=== PATIENT | male | born 1960 | race Hispanic/Latino ===

== ENCOUNTER 2021-10-22 10:37 | Day surgery (SDC) | payer OTHER ==
[2021-10-17 16:02] LABS: Absolute Lymphocytes (CBC) 1.2 K/uL (0.7-4.9); Lymphocytes % 20.5 % (15.3-44.8); MCV 98.4 fL (80-100); MPV 5.8 fL (7.6-11.3); Protime INR 1.04; RBC Red Blood Cell Count 3.97 M/uL (4.33-5.43)
[2021-10-17 16:10] LABS: SARS-CoV-2 Antigen Rapid Res Negative (Negative)
[2021-10-17 16:24] LABS: Potassium 4.1 mmol/L (3.5-5.1)
--- NOTE | 2021-10-19 15:23 | EKG ---
Test Date: 2021-10-17 Test Time: 14:44:42 Domestic Maid: VALDEZ MEASUREMENT RESULTS: Intervals: Rate: 74 OR: 130 QRSD: 66 QT: 358 QTc: 397 [place]: P: 72 OR: 130 QRS: 76 T: 84 INTERPRETIVE STATEMENTS: Normal sinus rhythm ST elevation, consider early repolarization, pericarditis, or injury Nonspecific ST abnormality Abnormal ECG Compared to ECG 08/08/2008 10:14:14 ST (T wave) deviation now present Electronically Signed On 10-19-21 15:20:18 CDT by Edgar Hernandez
[2021-10-22] MEDS ORDERED: CEFAZOLIN SODIUM 1 GM/VIAL ONE (10:55)
[2021-10-22] MEDS ORDERED: Ringers Lactate 1,000 ML IV ONE ×2 (10:55→15:58)
[2021-10-22] MEDS ORDERED: dexAMETHasone 10 MG/ML VIAL ONE (14:23)
[2021-10-22] MEDS ORDERED: propofoL 200 MG/20 ML VIAL IV ONE ×4 (14:23→16:54)
[2021-10-22] MEDS ORDERED: LIDOCAINE 2% MPF 5 ML VIAL ONE (14:24)
[2021-10-22] MEDS ORDERED: ONDANSETRON 4 MG/2 ML VIAL ONE (14:24)
[2021-10-22] MEDS ORDERED: KETOROLAC 30 MG/ML INJ ONE (14:24)
[2021-10-22] MEDS ORDERED: LIDOCAINE 1% MPF 30 ML VIAL ONE (14:33)
[2021-10-22] MEDS ORDERED: BACITRACIN OINTMENT 14 GM TUBE TOP ONE (14:33)
[2021-10-22] MEDS ORDERED: BUPIVACAINE 0.25% PF 30 ML VIAL ONE (14:33)
[2021-10-22] MEDS ORDERED: FENTANYL CITR 100 MCG/2 ML ONE (14:35)
[2021-10-22] MEDS ORDERED: NS 0.9% VIAL 20 ML ONE (15:22)
[2021-10-22] MEDS ORDERED: NS 0.9% VIAL 10 ML ONE (15:41)
[2021-10-22] MEDS ORDERED: EPHEDRINE SULF 50 MG/ML VIAL ONE (15:52)
[2021-10-22] MEDS ORDERED: Phenylephrine HCl 10 MG/ML 1 ML VIAL ONE (15:56)
[2021-10-22] MEDS ORDERED: Mastisol Adhesive Liq ONE (17:02)
[2021-10-22 17:50] VITALS: O2SAT 99
[2021-10-22 18:25] VITALS: BP 108/62; TEMP 97.4
[2021-10-22] MEDS ORDERED: CODEINE 30MG/APAP 300MG TAB PO PRN (18:25)
[2021-10-22] MEDS ORDERED: PHENAZOPYRIDINE 100MG TAB PO ONE (18:25)
--- NOTE | 2021-10-22 21:14 | OP ---
Surgeon: ALYSSA ESPINAL Preoperative Diagnoses: 1.Phimosis. 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 3.Left-sided hydronephrosis. Postoperative Diagnoses: 1.Phimosis. 2.Balanitis xerotica obliterans. 3.Meatal stenosis. 4.Pendulous urethral stricture disease extending into the perineal urethra but sparing the bulbar ur ethra. 5.Cystitis. 6.Left pelviectasis with delayed drainage. Principal Procedures: 1.Penile block. 2.Dorsal slit. 3.Meatoplasty. 4.Meatal dilation using sounds. 5.Urethroscopy and wire placement. 6.Sequential dilation of the urethra over a wire. 7.Flexible cystoscopy. 8.Left retrograde pyelography. 9.Left ureteral stent placement. 10.Complex left urethral catheter placement. Indication For Procedure: Mr. Gregg is a 61-year-old developmentally delayed individual with some bot hersome lower urinary symptoms and recurrent UTIs with left-sided hydronephrosis observed on ultrasou nd. On examination, his meatus was not visible due to dense phimosis. Procedure In Detail: The patient and his caregivers were consented in the preoperative holding area before being transferred to the operative suite where general anesthesia was induced. He was given A ncef for IV antimicrobial prophylaxis and pneumo boots were provided for DVT prophylaxis. He was ini tially placed in the supine position, padded and secured to the table appropriately, and I shaved his genitalia around the base of the penis before prepping it with Betadine and draping it in standard f ashion. A penile block was then delivered using a 1:1 mixture of 0.25% Marcaine with 1% lidocaine, a nd about 35 cc was instilled in the infrapubic region and in the region of the neurovascular bundles bilaterally. The case was then begun by using Adson forceps to try to hold apart the phimotic foresk in and visualize any sort of opening. There was only a pinpoint opening dorsally, as well as an fredrick tional pinpoint opening ventrally in the midline. I started with the dorsal opening by placing a cur bertha snap into the opening and gently dilating it. This evidenced itself to be a small hole likely a drainage site for sebum secretions from the foreskin as it had fused with the glans penis dorsally. Because the fusion with the glans was circumferential and abutted the meatal opening ventrally within a couple of mm, after making an assessment of the degree of adhesions, also given his cognitive stat us, I decided that trying to take down all of those adhesions would leave an extremely raw surface of the glans, which would be very difficult for him to heal and would likely simply re-adhese over time . He would also be at a high risk of infection. So instead, I dilated the dorsal opening sufficient ly to place a straight snap into the area and clamped the intervening tissue before dividing it sharp ly using electrocautery to perform a dorsal slit. Once the delacruz of the glans was approximated and the remainder of the glans in the region of the dorsal slit was visualizable despite the remainder of the glans from 2 o'clock to 10 o'clock being fused with the foreskin, at least the dorsal portion wa s now open. I then sutured the skin edges of the newly created dorsal slit using 3-0 chromic suture dipped in bacitracin in a running fashion along each side of the V that had been created. I then tur eve my attention back ventrally where the hole that was seen there was gently dilated using a curved snap before I utilized a 10-[place] catheter, after attempting a 14-[place] catheter without success, t o pass with some difficulty via the urethra and into the bladder where a very odiferous urine was enc ountered. I decompressed his bladder of that likely infected urine, and left the catheter in place. I then placed a straight snap along the frenular surface or frenular side of the meatal opening in o rder to perform a meatotomy, which I then dilated after removing the catheter with urethral sounds wi th great difficulty dilating the meatus and fossa navicularis to 26-[place] Citizen. I then reapproximated th e skin edges completing a meatoplasty using 5-0 Monocryl suture along each quadrant of the opening cr eated. I then attempted rigid cystoscopy using a 19.5-[place] scope, which would not pass beyond the meatus and fossa navicularis due to extensive urethral stricture disease. As a result, I passed a wi re under direct vision from the scope into his bladder and use of fluoroscopic imagery to confirm the wire was appropriately in place within the bladder. I then utilized sequential dilators to attempt to dilate over the wire. I was able to pass a 16-[place] Citizen dilator successfully all the way into his bl adder as evidenced fluoroscopically with the injection of contrast, essentially performing a cystogra m confirming the dilator and wire were appropriately within the bladder. Once confirmed, I then swit ched the Sensor wire with a super stiff wire via the 16-[place] Citizen dilator and coiled it within his bladd er as evidenced fluoroscopically. I then attempted to pass an 18-[place] dilator, but was only able t o navigate it beyond the distal 1/2 of the pendulous urethra due to the extensive nature of the stric ture disease along the entirety of the pendulous urethra extending into the perineal urethra. As a r esult, I removed the 18-[place] dilator and attempted to pass a 17-[place] rigid scope over the wire in to his bladder, but this would not pass due to the extensive nature of the urethral stricture disease and the retraction of his phallus that made grasping the phallus to aid navigation of the cystoscope very difficult. As a result, I then switched and employed a 16-[place] flexible cystoscope, which I was able to navigate over the super stiff wire and successfully enter his bladder. Upon entry into t he bladder, I aspirated several 100 cc of cloudy urine from within, and of note, a culture had been t jefry earlier when the 10-[place] catheter was placed into his bladder. I then refilled his bladder wi th sterile water and identified the ureteral orifices, which were orthotopic bilaterally. The remain vasiliy of his bladder was surveyed in its entirety, and there were no mucosal lesions, foreign bodies, o r stones of any suspicious nature. There was evidence of cystitis with erythema of the mucosa throug hout, consistent with a cloudiness of the urine and the odor found. I thus placed the cystoscope in line with the left ureteral orifice and was able to use a 5-[place] ureteral access catheter with the tip of a Sensor wire to gain access into the left ureteral orifice and navigate the 5-[place] ureteral access catheter into the distal ureter where a retrograde pyelogram was then performed. Left retrograde pyelography: Using fluoroscopic imagery and a 70:30 mixture of Omnipaque and saline, contrast was injected via the 5-[place] Citizen ureteral access catheter and did propagate up a nondilated and nonobstructed appearing dist al into the mid and proximal ureter before easily entering the renal pelvis and calices. Additional contrast was injected, and the calices were sharp without any blunting. The pelvis did appear to be mildly dilated, but it was not clear whether this was simply an anatomic variation. There did not ap pear to be significant hydronephrosis. So, after distending his pelvis with contrast, I then observe d the contrast easily, navigate alongside the 5-[place] ureteral access catheter and into his bladder indicative of absence of ureteral obstruction. There was no evidence of UPJ obstruction either. I lizzie mares placed the Sensor wire via the 5-[place] ureteral access catheter and coiled it within the upper p ole of his kidney and removed the 5-[place] ureteral access catheter because there was no significant efflux of contrast from within the renal pelvis and calices despite a period of observation. And hannah montero once the wire was in place and a 5-[place] ureteral access catheter was removed, there was delayed e fflux of contrast from the pelvis and collecting system; so as a result, I placed a 4.8-[place] Citizen x 26 c m double-J ureteral stent into his left kidney with a coil observed fluoroscopically and 1 cystoscopi keila formed in his bladder. This stent was left on its tether, which was left hanging outside the u rethra. I then placed a Sensor wire back into his bladder via the flexible cystoscope, and over the wire, I was able to navigate a 16-[place] tipped Parkinson catheter with moderate difficulty. Josef roximately 20 cc of sterile water was placed in the balloon, and the bladder was decompressed of some mildly cloudy urine. I then irrigated his bladder to clear it of the cloudiness and potentially inf ected urine before using Mastisol and Steri-Strips to secure the stent tether string to the catheter. The catheter was then connected to a leg bag, and the patient was taken out of the lithotomy positi on. A StatLock was applied, and the patient was awakened from general anesthesia before being transf erred through a stretcher. He was then transferred to the recovery room in good condition. Complications: None. Discharge Disposition: I would like to leave that urethral catheter in place for at least the next 2 weeks to allow the urethra to dilate. Since he has significant urethral stricture disease, he may b enefit from additional operative management and formal DVIU, which may be able to be performed follow ing passive dilation of the urethra with the 16-[place] catheter in place. We also will reassess his renal function with the stent in place and his bladder maximally decompressed with a catheter after a few weeks of drainage. If there is significant improvement in his renal function, then the presumpt lizabeth delayed drainage related obstruction could very well be the cause. If there is not significant i mprovement in his renal function, then obstruction is unlikely the cause, and he is scheduled to see a market developer in followup. I will also discharge him with a prescription for antimicrobial therapy to be taken twice a day for the next 10 days with additional prophylactic dosing to be taken over the course of the next 2-4 weeks while the stent remains in place and the above assessment is being perfo rmed. ANTHONY/NOELLE Voice ID: [id number] Report ID: [id number]
--- NOTE | 2021-10-23 08:40 | RAD REPORT ---
EXAM DESCRIPTION: RAD - Urethrocystogrphy Retrograde - 10/23/2021 8:22 am CLINICAL HISTORY: RETROGRADE PYELOGRAM COMPARISON: No comparisons FINDINGS: Total fluoro time: 0.5 minutes
== END 2021-10-22 18:59 | disposition home or self-care (01) ==
LOC: OR 10:37
PROVIDERS: ATTEND Urology
PROC: 0T9780Z Drainage of Left Ureter with Drainage Device, Via Natural or Artificial Opening Endoscopic (ICD-10-PCS; 2021-10-22)
PROC: 0TND8ZZ Release Urethra, Via Natural or Artificial Opening Endoscopic (ICD-10-PCS; 2021-10-22)
PROC: 0T7D8ZZ Dilation of Urethra, Via Natural or Artificial Opening Endoscopic (ICD-10-PCS; 2021-10-22)
PROC: 0VNTXZZ Release Prepuce, External Approach (ICD-10-PCS; 2021-10-22)
PROC: 0T778ZZ Dilation of Left Ureter, Via Natural or Artificial Opening Endoscopic (ICD-10-PCS; principal; 2021-10-22 13:45)
DX: N48.0 Leukoplakia of penis (principal); N47.1 Phimosis; N13.30 Unspecified hydronephrosis; N35.911 Unspecified urethral stricture, male, meatal; N30.90 Cystitis, unspecified without hematuria; N35.919 Unspecified urethral stricture, male, unspecified site
CPT/HCPCS: 52290; 52332; 53450; 54001; 93005; 87088 ×2; 85025; 87086 ×2; 80048; 36415; 85610; 74450; 51610; 87811; J2704 ×4; J2370; J3010; J1100; J7120 ×2; J2405; J0690; A4216; J2001

== ENCOUNTER 2022-12-29 19:08 | Emergency (ER) | payer OTHER ==
--- NOTE | 2022-12-29 20:41 | EDPHYS ---
Physician Documentation [facility] Name: Cristino Hillman Age: 62 yrs Sex: Male : 1960 Arrival Date: 12/29/2022 Time: 19:08 Bed 12 Private MD: ED Physician Piero Marcus HPI: 12/29 21:18 This 62 yrs old Male presents to ER via Ambulatory with complaints of FINGER kb SWELLING. 21:18 Patient is a 62-year-old male who presents for swelling to left thumb. Family member kb states that she noticed it about 15 minutes prior to arrival.. Historical: - Allergies: 19:30 No Known Allergies; nj1 - PMHx: 19:30 Down's Syndrome; BPH; nj1 - PSHx: 19:30 Partial circumcision; nj1 - Immunization history:: Client reports receiving the 2nd dose of the Covid vaccine. - Social history:: Smoking status: Patient denies any tobacco usage or history of. ROS: 21:16 Constitutional: Negative for fever, chills, and weight loss, kb 21:16 Skin: Positive for abscess, erythema, swelling, of the dorsal aspect of distal phalanx of left thumb, 21:16 All other systems are negative, Exam: 21:16 Constitutional: This is a well developed, well nourished patient who is awake, alert, kb and in no acute distress. Head/Face: Normocephalic, atraumatic. ENT: Moist Mucous membranes Respiratory: Respirations even and unlabored. No increased work of breathing. Talking in full sentences MS/ Extremity: Pulses equal, no cyanosis. Neurovascular intact. Full, normal range of motion. Neuro: Awake and alert, GCS 15, oriented to person, place, time, and situation. Moves all extremities. Normal gait. 21:16 Skin: abscess, that is moderate sized, of the dorsal aspect of distal phalanx of left thumb, with fluctuance, that is moderate, with surrounding cellulitis, that is very mild, Vital Signs: 19:28 BP 97 / 72; Pulse 93; Resp 18; Temp 97.8(O); Pulse Ox 98% on R/A; Weight 72.57 kg; nj1 Height 5 ft. 2 in. ; Pain 0/10; 19:28 Body Mass Index 29.26 (72.57 kg, 157.48 cm) nj1 19:28 Pain Scale: Adult nj1 MDM: 19:12 Patient medically screened. kb 21:17 Data reviewed: vital signs, nurses notes. kb 21:17 Differential diagnosis: abscess, allergic reaction, cellulitis, insect bite. Historians kb other than the Patient: Family Member: family member. Counseling: I had a detailed discussion with the patient and/or guardian regarding the historical points, exam findings, and any diagnostic results supporting the discharge/admit diagnosis, the need for outpatient follow up, a family practitioner, to return to the emergency department if symptoms worsen or persist or if there are any questions or concerns that arise at home. Administered Medications: 20:52 Drug: Trimethoprim-Sulfamethoxazole PO (160 mg-800 mg (DS) 1 tablet PO once Route: PO; mb9 Disposition Summary: 12/29/22 20:39 Discharge Ordered Notes: Location: Home kb Condition: Stable kb Diagnosis - Cutaneous abscess of left hand - paronychia left thumb kb Followup: kb - With: Emergency Department - When: As needed - Reason: Worsening of condition Followup: kb - With: Private Physician - When: 2 - 3 days - Reason: Recheck today's complaints, Continuance of care, Re-evaluation by your physician Discharge Instructions: - Discharge Summary Sheet kb - Paronychia, [id number] kb - Incision and Drainage, Care After kb Forms: - Medication Reconciliation Form kb - Thank You Letter kb - Antibiotic Education kb - Prescription Opioid Use kb - Patient Portal Instructions kb - Leadership Thank You Letter kb Prescriptions: - Bactrim DS 800-160 mg Oral Tablet - take 1 tablet ORAL route every 12 hours for 10 days; 20 tablet; Refills: 0, kb Product Selection Permitted Addendum: 01/03/2023 07:52 I was immediately available for consultation during this patient's visit. I did not e c2 personally see the patient or guide the patient's care. . Signatures: Salma Brown FNP-C FNP-Iraida Mendenhall RN RN mb9 Corrie Rao RN RN nj1 Piero Marcus MD MD ec2
--- NOTE | 2022-12-29 20:41 | ER ---
Nurse's Notes [facility] Name: Cristino Hillman Age: 62 yrs Sex: Male : 1960 Arrival Date: 12/29/2022 Time: 19:08 Bed 12 Private MD: Diagnosis: Cutaneous abscess of left hand-paronychia left thumb Presentation: 12/29 19:28 Chief complaint: Left thumb swelling. Noticed about 20 minutes ago. Pt denies pain, nj1 unsure when it actually start it. Coronavirus screen: Vaccine status: Patient reports receiving the 2nd dose of the covid vaccine. Ebola Screen: Patient denies travel to an Ebola-affected area in the 21 days before illness onset. Initial Sepsis Screen: Does the patient meet any 2 criteria? No. Patient's initial sepsis screen is negative. Does the patient have a suspected source of infection? No. Patient's initial sepsis screen is negative. Risk Assessment: Do you want to hurt yourself or someone else? Patient reports no desire to harm self or others. Onset of symptoms is unknown. 19:28 Method Of Arrival: Ambulatory [facility] 19:28 Acuity: ANIBAL 4 nj1 Historical: - Allergies: 19:30 No Known Allergies; nj1 - PMHx: 19:30 Down's Syndrome; BPH; nj1 - PSHx: 19:30 Partial circumcision; nj1 - Immunization history:: Client reports receiving the 2nd dose of the Covid vaccine. - Social history:: Smoking status: Patient denies any tobacco usage or history of. Screenin:25 [facility] ED Fall Risk Assessment (Adult) History of falling in the last 3 months, mb9 including since admission No falls in past 3 months (0 pts) Confusion or Disorientation No (0 pts) Intoxicated or Sedated No (0 pts) Impaired Gait No (0 pts) Mobility Assist Device Used No (0 pt) Altered Elimination No (0 pt) Score/Fall Risk Level 0 - 2 = Low Risk Oriented to surroundings, Maintained a safe environment, Educated pt \T\ family on fall prevention, incl call for assistance when getting out of bed. Abuse screen: Denies threats or abuse. Nutritional screening: No deficits noted. Tuberculosis screening: No symptoms or risk factors identified. Assessment: 20:24 General: Appears in no apparent distress. Behavior is calm, cooperative, appropriate mb9 for age. 20:24 Pain: Denies pain. Neuro: Alfonso Agitation-Sedation Scale (RASS): 0 - Alert and Calm mb9 Level of Consciousness is awake, alert, obeys commands, Oriented to Appropriate for age. Cardiovascular: Patient's skin is warm and dry. Respiratory: Airway is patent Respiratory effort is even, unlabored, Respiratory pattern is regular, symmetrical. GI: No signs and/or symptoms were reported involving the gastrointestinal system. : No signs and/or symptoms were reported regarding the genitourinary system. EENT: No signs and/or symptoms were reported regarding the EENT system. Derm: Skin is pink, warm \T\ dry. Musculoskeletal: Swelling present in lefth thumb. Vital Signs: 19:28 BP 97 / 72; Pulse 93; Resp 18; Temp 97.8(O); Pulse Ox 98% on R/A; Weight 72.57 kg; nj1 Height 5 ft. 2 in. ; Pain 0/10; 19:28 Body Mass Index 29.26 (72.57 kg, 157.48 cm) [facility] 19:28 Pain Scale: Adult [facility] ED Course: 19:11 Patient arrived in ED. ag3 19:12 Sal[facility]-C [facility] kb 19:12 Piero Marcus MD is Attending Physician. kb 19:30 Triage completed. nj1 19:31 Arm band placed on left wrist. nj1 20:25 Iraida Zheng, RN is Primary Nurse. mb9 20:25 Bed in low position. Call light in reach. Side rails up X 1. Client placed on mb9 continuous cardiac and pulse oximetry monitoring. NIBP monitoring applied. 20:52 No provider procedures requiring assistance completed. Patient did not have IV access mb9 during this emergency room visit. Administered Medications: 20:52 Drug: Trimethoprim-Sulfamethoxazole PO (160 mg-800 mg (DS) 1 tablet PO once Route: PO; mb9 Medication: 20:25 VIS not applicable for this client. mb9 Outcome: 20:39 Discharge ordered by . charleen 20:52 Discharged to home ambulatory, with family, mbDian 20:52 Condition: stable 20:52 Discharge instructions given to patient, family, Instructed on discharge instructions, follow up and referral plans. Demonstrated understanding of instructions, follow-up care, medications, Prescriptions given X 1, 20:52 Patient left the ED. mb9 Signatures: Salma Brown, LETTERSET PRESS SET UP OPERATOR-C LETTERSET PRESS SET UP OPERATOR-Ckb Sarah Robles ag3 Iraida Zheng RN RN mb9 Corrie Rao RN RN nj1 Corrections: (The following items were deleted from the chart) 20:25 20:24 General: Appears in no apparent distress. Behavior is calm, cooperative, mb9 appropriate for age, mb9
[2022-12-29 20:57] VITALS: BP 97/72; TEMP 97.8; O2SAT 98
[2022-12-29] MEDS ORDERED: SMZ./TMP. 800/160 MG TABLET ONE (21:03)
== END 2022-12-29 20:52 | disposition home or self-care (01) ==
LOC: ER 19:08
DX: L03.012 Cellulitis of left finger (principal)
CPT/HCPCS: 99283

== ENCOUNTER 2024-12-01 19:24 | Emergency (ER) | payer OTHER ==
[2024-12-01] MEDS ORDERED: NA CHLORIDE 3% 500 ML ONE (19:26)
[2024-12-01] MEDS ORDERED: NA CHLORIDE 0.9% 100 ML ONE (19:46)
[2024-12-01] MEDS ORDERED: LEVETIRACETAM 500 MG/5 ML VIAL IV ONE (19:46)
--- NOTE | 2024-12-01 19:47 | EDPHYS ---
Physician Documentation [facility] Name: Cristino Hillman Age: 64 yrs Sex: Male : 1960 Arrival Date: 12/01/2024 Time: 19:24 Bed 4 Private MD: ED Physician Jae Cheng HPI: 12/01 19:49 This 64 yrs old Male presents to ER via EMS with complaints of S/S of Possible tt7 Stroke. 19:49 Patient reportedly woke up from a nap at 1730 this evening and was seen normal, he then tt7 became somnolent and seemed to have decreased awareness, EMS was called and by the time patient was seen in the emergency department he was aphasic with paralysis of his left upper and lower extremity. Patient has prior history of ischemic stroke in May of this year. He takes a baby aspirin daily, no other antiplatelet agents or anticoagulants. Historical: - Allergies: 19:28 No Known Allergies; bm8 - Home Meds: 19:28 Unable to obtain [Active]; bm8 - PMHx: 19:28 BPH; Down's Syndrome; bm8 - PSHx: 19:28 Partial circumcision; bm8 - Immunization history:: Adult Immunizations up to date. - Infectious Disease History:: Denies. - Social history:: Smoking status: Patient denies any tobacco usage or history of. ROS: 19:51 Constitutional: negative for fever. tt7 19:51 Unable to obtain ROS due to patient's speech is incomprehensible, Exam: 19:51 Constitutional: vital signs reviewed, well appearing. Head/Face: normocephalic, tt7 atraumatic. Eyes: PERRL, fixed right gaze deviation, no conjunctival injection, anicteric sclerae. ENT: mucus membranes moist. Neck: trachea midline, no JVD, no meningismus. Chest/axilla: normal chest wall appearance and motion, nontender, no crepitus. Cardiovascular: regular rate and rhythm, no murmurs, no rubs, no lower extremity edema. Respiratory: normal respiratory effort, no accessory muscle use, lungs CTAB. Abdomen/GI: soft, nondistended. Skin: warm, dry, intact, normal turgor, normal color, no rash. MS/ Extremity: no gross deformities. 19:51 Neuro: Orientation: unable to test, Mentation: able to follow commands, Memory: unable to test, Cranial nerves: Speech is Aphasic. Motor: Flaccid paralysis of the left upper and lower extremities, Sensation: unable to test, 20:22 Radiologist reports: See report tt7 Vital Signs: 19:10 BP 137 / 91; Pulse 81; Resp 17; Temp 98.2; Pulse Ox 97% ; Weight 75.3 kg; Height 5 ft. bm8 2 in. ; Pain 0/10; 19:58 BP 116 / 73; Pulse 67; Resp 12; Temp 98.2; Pulse Ox 99% ; Pain 0/10; bm8 20:10 BP 135 / 085; Pulse 90; Resp 13; Temp 98.2; Pulse Ox 99% ; Pain 0/10; bm8 19:10 Body Mass Index 30.36 (75.30 kg, 157.48 cm) bm8 19:10 Pain Scale: Adult bm8 19:58 Pain Scale: Adult bm8 20:10 Pain Scale: Adult bm8 NIH Stroke Scale Scores: 19:10 NIHSS Score: 30 bm8 20:25 NIHSS Score: 28 bm8 [place] Coma Score: 19:58 Eye Response: to voice(3). Motor Response: localizes pain(5). Verbal Response: none(1). bm8 Total: 9. MDM: 19:36 Medical Screening Exam initiated tt7 19:56 Differential diagnosis: CVA, paralysis, Intracranial hemorrhage. TNKase (Tenecteplase) tt7 Screening: Contraindications: Intracranial hemorrhage and its risk factor and suspicion of subarachnoid bleed: Yes. Data reviewed: vital signs, nurses notes, lab test result(s), EKG, radiologic studies. Historians other than the Patient: EMS: . Family Member: . Counseling: I had a detailed discussion with the patient and/or guardian regarding the historical points, exam findings, and any diagnostic results supporting the discharge/admit diagnosis, radiology results, the need to transfer to another facility. 20:00 ED course: Patient presents with aphasia, left-sided weakness concerning for stroke, tt7 patient was immediately taken to CT where I assessed the patient, noncontrast CT head was obtained and I independently interpreted the image while in CT, I saw a large right-sided intraparenchymal hemorrhage with about 5 mm of midline shift, the patient was then taken to resuscitation bay where 250 mL bolus of hypertonic saline was administered, 8 mg IV Zofran given to prevent vomiting, patient loaded with 2 g of Keppra for seizure prophylaxis, and transfer was initiated to facility with on-call neurosurgery. Patient maintained on 50 mL/h of hypertonic saline after bolus completed. I spoke with on-call neurologist at [facility] who accepted the patient for transfer. Plan is for ED to ED transfer via helicopter. I spoke with ED physician Dr. Mayberry at [facility] about the case who accepts for transfer. 20:08 ED course: I independently interpreted the patient's EKG performed on 12/01/2024 at tt7 1928. On my interpretation, EKG demonstrates normal sinus rhythm, ventricular rate 75 bpm, normal axis, normal QRS interval, normal ST segments, no STEMI. 20:26 ED course: This patient has a medical condition that impairs one or more vital organ tt7 systems and has a high probability of imminent or life threatening deterioration in their condition. Management of this patient required my highest level of care and included frequent personal assessment and intervention. I personally spent 45 minutes of critical care time, exclusive of time spent on separately billable procedures, in the evaluation and management of this patient's condition. This critical care time included independently obtaining a history, examining the patient, pulse oximetry, cardiac telemetry monitoring, ordering and review of studies laboratory and imaging studies, development of a management plan, evaluation of patient's response to treatment, frequent reassessment, and discussion with other healthcare providers. 12/01 19:40 Order name: Basic Metabolic Panel; Complete Time: 19:59 tt7 12/01 19:40 Order name: CBC with Diff; Complete Time: 19:58 tt7 12/01 19:40 Order name: High Sensitivity Troponin; Complete Time: 19:59 tt7 12/01 19:40 Order name: Protime (+inr); Complete Time: 19:58 tt7 12/01 19:40 Order name: Ptt, Activated; Complete Time: 19:58 tt7 12/01 19:46 Order name: Glucose, Ancillary Testing; Complete Time: 19:58 EDMS 12/01 19:40 Order name: CT Stroke Brain w/o Contrast; Complete Time: 19:58 tt7 12/01 19:40 Order name: Stroke CXR 1 View tt7 12/01 19:40 Order name: Accucheck; Complete Time: 19:44 tt7 12/01 19:40 Order name: Cardiac monitoring; Complete Time: 19:44 tt7 12/01 19:40 Order name: EKG - Nurse/Tech; Complete Time: 19:44 tt7 12/01 19:40 Order name: IV Saline Lock; Complete Time: 19:44 tt7 12/01 19:40 Order name: Labs collected and sent; Complete Time: 19:44 tt7 12/01 19:40 Order name: NPO; Complete Time: 19:45 tt7 12/01 19:40 Order name: O2 Per Protocol; Complete Time: 19:45 tt7 12/01 19:40 Order name: O2 Sat Monitoring; Complete Time: 19:45 tt7 12/01 19:40 Order name: Stroke Swallow Screen; Complete Time: 19:45 tt7 Administered Medications: 19:30 Drug: Sodium Chloride IV 3 % 500 ml 500 ml IV at 250 ml/hr once; *specify rate* {Note: bm8 at 250 ml lower to 50 ml/ hr..} Volume: 500 ml; Route: IV; Rate: 250 ml/hr; Site: right antecubital; 20:27 Follow up: Response: No adverse reaction; IV Status: Infusion continued upon transfer bm8 19:51 Drug: Keppra IV 2000 mg IV at bolus once Route: IV; Rate: bolus; Site: left forearm; bm8 20:27 Follow up: Response: No adverse reaction; IV Status: Infusion continued upon transfer bm8 20:18 Drug: Ondansetron IVP 8 mg IVP once; over 2 minutes Route: IVP; Site: right antecubital;bm8 20:27 Follow up: Response: No adverse reaction bm8 Point of Care Testing: Blood Glucose: 19:40 Blood Glucose: 98 mg/dL; bm8 Ranges: Critical Glucose Levels:Adult <50 mg/dl or >400 mg/dl <40 mg/dl or >180 mg/dl Disposition: 20:27 Co-signature as Attending Physician, Jae Cheng DO. tt7 Disposition Summary: 12/01/24 19:47 Transfer Ordered Notes: Transfer Location: [facility] tt7 Reason: Higher level of care tt7 Condition: Critical tt7 Problem: new tt7 Symptoms: are unchanged tt7 Accepting Physician: Dr. Mayberry(12/01/24 20:31) bm8 Diagnosis - Nontraumatic intracerebral hemorrhage, unspecified tt7 Forms: - Medication Reconciliation Form tt7 - SBAR form tt7 NIH Stroke Scale - NIH Stroke Score Date: 12/01/2024 Time: 19:10 Total Score = 30 10. Dysarthria (speech clarity - read or repeat words) - 2(Severe) 11. Extinction and Inattention (visual/tactile/auditory/spatial/personal) - 2(Profound) 1a. Level of Consciousness (LOC) - 1(Not Alert) 1b. Level of Consciousness (LOC) (Month \T\ Age) - 2(Neither) 1c. LOC Commands (Open \T\ Closes Eyes/Apiculturist) - 2(Neither) 2. Best Gaze (Lateral Gaze Paresis) - 2(Forced deviation) 3. Visual Field Loss - 3(Bilateral hemianopia) 4. Facial Palsy - 0(Normal) 5a. Left Arm: Motor (10-second hold) - 4(No movement) 5b. Right Arm: Motor (10-second hold) - 1(Drift) 6a. Left Leg: Motor (5-second hold - always test supine) - 4(No movement) 6b. Right Leg: Motor (5-second hold - always test supine) - 1(Drift) 7. Limb Ataxia (finger/nose \T\ heel/weathers - test with eyes open) - 2(Present in two limbs) 8. Sensory Loss (pinprick arms/legs/face) - 1(Mild to moderate loss) 9. Best Language: Aphasia (description/naming/reading) - 3(Mute, global aphasia) Initials: bm8 NIH Stroke Scale - NIH Stroke Score Date: 12/01/2024 Time: 20:25 Total Score = 28 10. Dysarthria (speech clarity - read or repeat words) - 2(Severe) 11. Extinction and Inattention (visual/tactile/auditory/spatial/personal) - 2(Profound) 1a. Level of Consciousness (LOC) - 1(Not Alert) 1b. Level of Consciousness (LOC) (Month \T\ Age) - 2(Neither) 1c. LOC Commands (Open \T\ Closes Eyes/Apiculturist) - 2(Neither) 2. Best Gaze (Lateral Gaze Paresis) - 2(Forced deviation) 3. Visual Field Loss - 2(Complete hemianopia) 4. Facial Palsy - 0(Normal) 5a. Left Arm: Motor (10-second hold) - 4(No movement) 5b. Right Arm: Motor (10-second hold) - 1(Drift) 6a. Left Leg: Motor (5-second hold - always test supine) - 4(No movement) 6b. Right Leg: Motor (5-second hold - always test supine) - 1(Drift) 7. Limb Ataxia (finger/nose \T\ heel/weathers - test with eyes open) - 2(Present in two limbs) 8. Sensory Loss (pinprick arms/legs/face) - 1(Mild to moderate loss) 9. Best Language: Aphasia (description/naming/reading) - 2(Severe aphasia) Initials: bm8 Signatures: Dispatcher [employer] EDMS Alan Joy RN RN bm8 Jae Cheng, DO tt7 Corrections: (The following items were deleted from the chart) 19:41 19:40 BASIC METABOLIC PANEL+C.LAB.BRZ ordered. EDWY EDMS 19:41 19:40 CBC+H.LAB.BRZ ordered. EDWY EDMS 19:41 19:40 Troponin High Sensitivity+C.LAB.BRZ ordered. EDWY EDMS 19:41 19:40 PROTIME (+INR)+COAG.LAB.BRZ ordered. EDWY EDMS 19:41 19:41 PTT, ACTIVATED+COAG.LAB.BRZ ordered. EDWY EDWY 19:41 19:41 Chest Single View+RAD.RAD.BRZ ordered. EDWY EDMS 20:26 20:00 ED course: Patient presents with aphasia, left-sided weakness concerning tt7 for stroke, patient was immediately taken to CT where I assessed the patient, noncontrast CT head was obtained and I independently interpreted the image while in CT, I saw a large right-sided intraparenchymal hemorrhage with about 5 mm of midline shift, the patient was then taken to resuscitation bay where 250 mL bolus of hypertonic saline was administered, 8 mg IV Zofran given to prevent vomiting, patient loaded with 2 g of Keppra for seizure prophylaxis, and transfer was initiated to facility with on-call neurosurgery. Patient maintained on 50 mL/h of hypertonic saline after bolus completed. I spoke with on-call neurologist at [facility] who accepted the patient for transfer. Plan is for ED to ED transfer via helicopter. I spoke with ED physician at [facility] about the case who accepts for transfer.. 20: 19:47 Dr. marrero tt7 20:31 20:26 Dr. Mayberry tt7 bm8
--- NOTE | 2024-12-01 19:47 | ER ---
Nurse's Notes [facility] Name: Cristino Hillman Age: 64 yrs Sex: Male : 1960 Arrival Date: 12/01/2024 Time: 19:24 Bed 4 Private MD: Diagnosis: Nontraumatic intracerebral hemorrhage, unspecified Presentation: 12/01 19:10 Chief complaint: EMS states: Called out for probable stroke symptoms. On arrival pt was bm8 unable to speak and had severe left sided deficits. 19:10 Coronavirus screen: Vaccine status: At this time, the client does not indicate any bm8 symptoms associated with coronavirus-19. Ebola Screen: Patient negative for fever greater than or equal to 101.5 degrees Fahrenheit, and additional compatible Ebola Virus Disease symptoms Patient denies exposure to infectious person. Patient denies travel to an Ebola-affected area in the 21 days before illness onset. No symptoms or risks identified at this time. An acute neurological deficit is present. The patients blood glucose was checked before arriving to the hospital and was found to be normal. Initial Sepsis Screen: Does the patient meet any 2 criteria? No. Patient's initial sepsis screen is negative. Does the patient have a suspected source of infection? No. Patient's initial sepsis screen is negative. Risk Assessment: Do you want to hurt yourself or someone else? Patient reports no desire to harm self or others. Onset of symptoms was December 01, 2024 at 17:30. 19:10 Method Of Arrival: EMS: [facility] 8 19:10 Acuity: ANIBAL 2 8 19:32 Care prior to arrival: IV initiated. 18 GA, in the right forearm, Glucose check: 95. bm8 Triage Assessment: 19:10 The onset of the patients symptoms was December 01, 2024 at 17:30. General: Appears in bm8 no apparent distress. comfortable, Behavior is calm, cooperative, appropriate for age. 19:10 Pain: Denies pain. EENT: Eyes showing upper right fixed gaze. Neuro: Level of bm8 Consciousness is awake, obeys commands, Oriented to unable to assess. Cnp are weak on left Weakness in left Speech with expressive aphasia noted, Facial symmetry appears normal, Pupils are sluggish, gazing towards the right, Intact Reports. Cardiovascular: Denies chest pain, Heart tones S1 S2 present Capillary refill < 3 seconds in bilateral fingers Patient's skin is warm and dry. Respiratory: Airway is patent Respiratory effort is even, unlabored, Respiratory pattern is regular, symmetrical, Breath sounds are clear bilaterally. GI: No signs and/or symptoms were reported involving the gastrointestinal system. : No signs and/or symptoms were reported regarding the genitourinary system. Derm: No signs and/or symptoms reported regarding the dermatologic system. Musculoskeletal: No signs and/or symptoms reported regarding the musculoskeletal system. Stroke Activation: Physician: ED Attending; Name: meir; Notified At: 19:10; Arrived At: 19:11 Physician: Mid-Level Provider; Name: ; Notified At: 19:10; Arrived At: Physician: [not used]; Name: ; Notified At: ; Arrived At: Physician: [not used]; Name: ; Notified At: ; Arrived At: Physician: [not used]; Name: ; Notified At: ; Arrived At: Historical: - Allergies: 19:28 No Known Allergies; bm8 - Home Meds: 19:28 Unable to obtain [Active]; bm8 - PMHx: 19:28 BPH; Down's Syndrome; bm8 - PSHx: 19:28 Partial circumcision; bm8 - Immunization history:: Adult Immunizations up to date. - Infectious Disease History:: Denies. - Social history:: Smoking status: Patient denies any tobacco usage or history of. Screenin:58 [facility] ED Fall Risk Assessment (Adult) History of falling in the last 3 months, bm8 including since admission No falls in past 3 months (0 pts) Confusion or Disorientation Yes (5 pts) Intoxicated or Sedated Yes (3 pts) Impaired Gait Yes (1 pt) Mobility Assist Device Used No (0 pt) Altered Elimination No (0 pt) Score/Fall Risk Level 3 or more points = High Risk Oriented to surroundings, Maintained a safe environment, Educated pt \T\ family on fall prevention, incl call for assistance when getting out of bed, Assessed \T\ reinforced patient's understanding of fall precautions, Hourly rounding (assess needs \T\ fall precautionary measures) done, Used ambulatory aids as needed (educated on \T\ assisted with), Used gait belt as appropriate Implemented a Fall Risk Plan of Care. Abuse screen: Denies threats or abuse. Nutritional screening: No deficits noted. Tuberculosis screening: No symptoms or risk factors identified. Assessment: 19:10 VAN Scoring: Arm Drift: Severe drift Visual Disturbance: Field Cut: Abnormal visual bm8 cruz noted. Provider notified of +VAN scoring. pt has severe right sided gaze devitation Aphasia: Patient exhibits both expressive and receptive aphasia. Provider notified of +VAN scoring. Neglect: Forced gaze noted or unable to track to one side. Provider notified of +VAN scoring. [place] Swallow Protocol Exclusion Criteria: Unable to remain alert for testing: No NPO for medical/surgical reason by provider order No Head-of-bed restricted <30 degrees Tracheostomy tube present No No thin liquids due to preexisting dysphagia/baseline modified diet thickened liquids Yes (STOP, ST Cons) Exclusion Criteria Result: Proceed Brief Cognitive Screen What is your name? Abnormal Where are you right now? Abnormal What year is it? Abnormal Oral Mechanism Examination Oral Mechanism Result: Abnormal: pt failed when unable to speak, not able to follow nstructions. 3 oz Water Swallow Challenge: Result: FAIL MD Notified: Jae Cheng DO. TNKase (Tenecteplase) Screening: Contraindications: Intracranial hemorrhage and its risk factor and suspicion of subarachnoid bleed: Yes. 19:30 Reassessment: Pt given 3% Hypertonic solution at 250ml/hr per MD Prosper. mf3 19:57 Reassessment: Patient appears in no apparent distress at this time. No changes from bm8 previously documented assessment. Patient and/or family updated on plan of care and expected duration. Pain level reassessed. 20:08 Reassessment: report to GINA Lantigua at [facility]. bm8 20:17 Reassessment: Patient appears in no apparent distress at this time. No changes from bm8 previously documented assessment. Patient and/or family updated on plan of care and expected duration. Pain level reassessed. 20:25 Reassessment: Patient appears in no apparent distress at this time. Patient and/or bm8 family updated on plan of care and expected duration. Pain level reassessed. report to [facility], Pt has started speaking unintelligibly Patient states symptoms have not improved. Vital Signs: 19:10 BP 137 / 91; Pulse 81; Resp 17; Temp 98.2; Pulse Ox 97% ; Weight 75.3 kg; Height 5 ft. bm8 2 in. ; Pain 0/10; 19:58 BP 116 / 73; Pulse 67; Resp 12; Temp 98.2; Pulse Ox 99% ; Pain 0/10; bm8 20:10 BP 135 / 085; Pulse 90; Resp 13; Temp 98.2; Pulse Ox 99% ; Pain 0/10; bm8 19:10 Body Mass Index 30.36 (75.30 kg, 157.48 cm) bm8 19:10 Pain Scale: Adult bm8 19:58 Pain Scale: Adult bm8 20:10 Pain Scale: Adult bm8 [place] Coma Score: 19:58 Eye Response: to voice(3). Motor Response: localizes pain(5). Verbal Response: none(1). bm8 Total: 9. NIH Stroke Scale Scores: 19:10 NIHSS Score: 30 bm8 20:25 NIHSS Score: 28 bm8 ED Course: 19:10 Arm band placed on right wrist. bm8 19:15 No provider procedures requiring assistance completed. Initial lab(s) drawn, by ca, bm8 sent to lab. EKG done, by ED staff, reviewed by Jae Cheng DO. 19:15 Inserted saline lock: 20 gauge in left forearm, using aseptic technique. Blood bm8 collected. Flushed with 10 mL NS Maintain EMS IV. Dressing intact. Good blood return noted. Site clean \T\ dry. Gauge \T\ site: 18g RAC. Flushed with 10 mL NS. Patient maintains SpO2 saturation greater than 95% on room air. Response to oxygen therapy: symptoms improved. 19:25 Patient arrived in ED. vk 19:25 Alan Joy, RN is Primary Nurse. bm8 19:28 Triage completed. bm8 19:29 initiated with [facility] spoke with Kunal. vk 19:36 Jae Cheng DO is Attending Physician. tt7 19:43 CT Stroke Brain w/o Contrast In Process Unspecified. EDMS 19:58 Patient has correct armband on for positive identification. Bed in low position. Call bm8 light in reach. Side rails up X2. Adult w/ patient. Provided Education on: need for transfer. Client placed on continuous cardiac and pulse oximetry monitoring. NIBP monitoring applied. teletypesetter monitor on. Pulse ox on. NIBP on. Door closed. Noise minimized. Warm blanket given. Pillow given. Verbal reassurance given. Head of bed elevated. 20:07 Patient was accepted to [facility] ED to Dr. Mayberry \ accepting admin Kunal South \ / mariangel Spoke with MARIEL with [facility] ETA 10 Mins from 1957. 20:25 Patient transferred, IV remains in place. bm8 20:31 Stroke CXR 1 View In Process Unspecified. EDMS Administered Medications: 19:30 Drug: Sodium Chloride IV 3 % 500 ml 500 ml IV at 250 ml/hr once; *specify rate* {Note: bm8 at 250 ml lower to 50 ml/ hr..} Volume: 500 ml; Route: IV; Rate: 250 ml/hr; Site: right antecubital; 20:27 Follow up: Response: No adverse reaction; IV Status: Infusion continued upon transfer bm8 19:51 Drug: Keppra IV 2000 mg IV at bolus once Route: IV; Rate: bolus; Site: left forearm; bm8 20:27 Follow up: Response: No adverse reaction; IV Status: Infusion continued upon transfer bm8 20:18 Drug: Ondansetron IVP 8 mg IVP once; over 2 minutes Route: IVP; Site: right antecubital;bm8 20:27 Follow up: Response: No adverse reaction bm8 Medication: 19:58 VIS not applicable for this client. bm8 Point of Care Testing: Blood Glucose: 19:40 Blood Glucose: 98 mg/dL; bm8 Ranges: Outcome: 19:47 ER care complete, transfer ordered by tt7 20:25 Transferred by helicopter to [facility], Transfer form completed. X-rays sent bm8 w/ patient. 20:25 Condition: stable 20:25 Instructed on the need for transfer, Demonstrated understanding of instructions, follow-up care, medications, 20:31 Patient left the ED. bm8 NIH Stroke Scale - NIH Stroke Score Date: 12/01/2024 Time: 19:10 Total Score = 30 10. Dysarthria (speech clarity - read or repeat words) - 2(Severe) 11. Extinction and Inattention (visual/tactile/auditory/spatial/personal) - 2(Profound) 1a. Level of Consciousness (LOC) - 1(Not Alert) 1b. Level of Consciousness (LOC) (Month \T\ Age) - 2(Neither) 1c. LOC Commands (Open \T\ Closes Eyes/Colorist Photography) - 2(Neither) 2. Best Gaze (Lateral Gaze Paresis) - 2(Forced deviation) 3. Visual Field Loss - 3(Bilateral hemianopia) 4. Facial Palsy - 0(Normal) 5a. Left Arm: Motor (10-second hold) - 4(No movement) 5b. Right Arm: Motor (10-second hold) - 1(Drift) 6a. Left Leg: Motor (5-second hold - always test supine) - 4(No movement) 6b. Right Leg: Motor (5-second hold - always test supine) - 1(Drift) 7. Limb Ataxia (finger/nose \T\ heel/weathers - test with eyes open) - 2(Present in two limbs) 8. Sensory Loss (pinprick arms/legs/face) - 1(Mild to moderate loss) 9. Best Language: Aphasia (description/naming/reading) - 3(Mute, global aphasia) Initials: bm8 NIH Stroke Scale - NIH Stroke Score Date: 12/01/2024 Time: 20:25 Total Score = 28 10. Dysarthria (speech clarity - read or repeat words) - 2(Severe) 11. Extinction and Inattention (visual/tactile/auditory/spatial/personal) - 2(Profound) 1a. Level of Consciousness (LOC) - 1(Not Alert) 1b. Level of Consciousness (LOC) (Month \T\ Age) - 2(Neither) 1c. LOC Commands (Open \T\ Closes Eyes/Colorist Photography) - 2(Neither) 2. Best Gaze (Lateral Gaze Paresis) - 2(Forced deviation) 3. Visual Field Loss - 2(Complete hemianopia) 4. Facial Palsy - 0(Normal) 5a. Left Arm: Motor (10-second hold) - 4(No movement) 5b. Right Arm: Motor (10-second hold) - 1(Drift) 6a. Left Leg: Motor (5-second hold - always test supine) - 4(No movement) 6b. Right Leg: Motor (5-second hold - always test supine) - 1(Drift) 7. Limb Ataxia (finger/nose \T\ heel/weathers - test with eyes open) - 2(Present in two limbs) 8. Sensory Loss (pinprick arms/legs/face) - 1(Mild to moderate loss) 9. Best Language: Aphasia (description/naming/reading) - 2(Severe aphasia) Initials: bm8 Signatures: Dispatcher [employer] Harriett Mac Brad RN RN bm8 Susanna David RN RN mf3 Jae Cheng DO DO tt7 Corrections: (The following items were deleted from the chart) 20:07 19:30 Sodium Chloride IV 3 % 500 ml 500 ml IV at 250 ml/hr in right antecubital bm8 bm8
[2024-12-01 19:48] LABS: Absolute Lymphocytes (CBC) 1.5 K/uL (0.7-4.9); Hematocrit 40.8 % (39.6-49.0); Hemoglobin 13.6 g/dL (13.6-17.9); MCH 33.2 pg (27.0-35.0); MCHC 33.3 g/dL (32.0-36.0); MCV 99.7 fL (80-100); MPV 6.0 fL (7.6-11.3); Nucleated RBC Absolute Count 0.0 (0-0); Nucleated Red Blood Cells % 0.0 % (0-0); RBC Red Blood Cell Count 4.10 M/uL (4.33-5.43); White Blood Count 7.70 thou/uL (4.3-10.9)
[2024-12-01 19:51] LABS: PT Prothrombin Time 12.0 SECONDS (10-13.0); PTT, Activated Partial Thromb 30.7 SECONDS (27.2-37.4); Protime INR 1.06
--- NOTE | 2024-12-01 19:55 | RAD REPORT ---
EXAM: CT Ct Stroke Brain Wo Cont HISTORY: STROKE ALERT COMPARISON: None TECHNIQUE: Multiple contiguous axial images were obtained for a CT of the brain without contrast. Sag ittal and coronal reformats were performed. One or more of the following dose reduction techniques were used: Automated exposure control, adjus tment of the mA and kV according to patient size, and iterative reconstruction. Unless otherwise specified, incidental findings do not require dedicated imaging follow-up. FINDINGS: Large hyperdense parenchymal hematoma centered on the centrum semiovale white matter, extending towar ds the cortical and subcortical surface of the operculum, measuring 6.2 x 3.5 x 3.6 cm in greatest CC, transverse, and AP dimensions. Small volume subarachnoid hemorrhage along the adjacent right marisel etal sulci. Encephalomalacia seen involving the right occipital, posterior parietal, and posterior lateral temporal regions. No evidence of hydrocephalus, or abnormal extra-axial fluid collection. Mass effect upon the right lateral ventricle, moderately effaced throughout. 5 mm leftward midline sh ift. Basal cisterns are patent. No evidence of transtentorial herniation. The calvarium is intact. The visualized paranasal sinuses and mastoid air cells are essentially clear . IMPRESSION: Large parenchymal hematoma centered on the right centrum semiovale, extending to the cortical/subcort ical surface of the operculum. An adjacent small volume subarachnoid hemorrhage along the parietal sulci Pronounced mass effect with right lateral ventricle effacement, and 5 mm of leftward midline shift. THIS REPORT CONTAINS FINDINGS THAT MAY BE CRITICAL TO PATIENT CARE. The findings were verbally commun icated via telephone to Jae Cheng MD on 12/01/2024 7:23 PM.
[2024-12-01 19:58] LABS: Anion Gap 6.4 mEq/L (5.0-15.0); BUN Blood Urea Nitrogen 13.0 mg/dL (7-18); Glucose Level 105.0 mg/dL (74-106); Potassium 4.4 mEq/L (3.5-5.1); Troponin High Sensitivity 4.9 pg/mL (<58.9)
[2024-12-01] MEDS ORDERED: ONDANSETRON 4 MG/2 ML VIAL ONE (20:11)
--- NOTE | 2024-12-01 20:41 | RAD REPORT ---
EXAMINATION: ONE VIEW CHEST XR CLINICAL INDICATION: Male, 64 years old.,stroke TECHNIQUE: Frontal chest projection is submitted. Examination is limited by patient positioning and t echnique. COMPARISON: No prior exam. FINDINGS: The lungs are grossly clear although suboptimal inspiratory effort somewhat limits evaluation. No pn eumothorax or sizable effusion. The heart is normal in size. Mediastinal contours are unremarkable. IMPRESSION: No acute intrathoracic abnormalities.
[2024-12-01 20:44] VITALS: TEMP 98.2; O2SAT 99
[2024-12-01 20:45] VITALS: BP 135/085
== END 2024-12-01 20:31 | disposition short-term general hospital (02) ==
LOC: ER 19:24
DX: I61.9 Nontraumatic intracerebral hemorrhage, unspecified (principal); R29.730 NIHSS score 30; Q90.9 Down syndrome, unspecified
CPT/HCPCS: 96365; 93005; 85025; 80048; 36415; 85610; 82947; 85730; 84484; 70450; 71045; 96375; 99285; J1953; J2405; J7131